=== PATIENT | male | born 1990 | race African-American/Black ===

== ENCOUNTER 2018-08-06 02:11 | Emergency (ER) | payer SELFPAY ==
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
[2018-08-06 02:22] VITALS: BP 113/59; PULSE 110; RESP 24; TEMP 36.4; O2SAT 95
--- NOTE | 2018-08-06 02:33 | DI.CT_ITS ---
SYMPTOMS/DIAGNOSIS: NECK PAIN WITH NEURO CHANGES NONCONTRAST HEAD CT: No intracranial hemorrhage or skull fracture is seen. There is mild patient motion. The ventricles are normal in size. The visualized portions of the orbits, sinuses and mastoid air cells appear clear. IMPRESSION: Negative head CT. CT OF THE CERVICAL SPINE: There is no evidence of fracture. The alignment appears normal. IMPRESSION: Negative CT of the cervical spine.
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
[2018-08-06] MEDS: Lactated Ringers 1,000 ML 150 ML IV (02:50)
[2018-08-06 02:53] LABS: Abs Immature Grans 0.03 k/cumm (0.0-0.09); Absolute Basophil Count 0.03 k/cumm (0.0-0.2); Absolute Monocyte Count 0.88 k/cumm (0.11-0.7); Basophils % 0.2; Eosinophils % 0.7; HCT 40.1 % (40.0-50.0); HGB 13.1 g/dL (13.5-17.5); Immature Grans % 0.2; Lymphocytes % 18.6; Mean Corp. HGB Concentration 32.7 g/dL (32.0-36.0); Mean Corpuscular Hemoglobin 23.6 pg (27.0-33.0); Mean Corpuscular Volume 72.3 fL (80-95); Monocytes % 6.3; Platelet Count 346 x1000/uL (130-400); RBC 5.55 m/cumm (4.50-6.00); White Blood Cell Count 13.95 k/cumm (4.4-10.8)
[2018-08-06 03:01] LABS: Absolute Lymphocyte Count 2.59 k/cumm (1.2-3.4); Absolute Neutrophil Count 10.32 k/cumm (1.2-6.7)
[2018-08-06 03:04] LABS: ALT 53 U/L (12-78); AST 25 U/L (15-37); Albumin 3.6 g/dL (3.4-5.0); Alkaline Phosphatase 106 U/L (46-116); Anion Gap 14.9 mmol/L (3-11); BUN 8 mg/dL (7-18); Bilirubin, Total 0.1 mg/dL (0.2-1.0); CO2 23.1 mmol/L (21.0-32.0); CREATININE 0.81 mg/dL (0.70-1.30); Calcium 8.5 mg/dL (8.5-10.1); Chloride 106 mmol/L (98-107); Glucose 106 mg/dL (70-100); Potassium 3.8 mmol/L (3.5-5.1); Sodium 144 mmol/L (136-145); Total Protein 7.8 g/dL (6.4-8.2)
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
--- NOTE | 2018-08-06 03:26 | NUR.NOTE ---
Nursing Note: pt states unable to urinate yet, refuses cath spec.
[2018-08-06 03:28] LABS: Microcytosis 2+; Poikilocytes 1+
[2018-08-06 03:30] LABS: Diff Comment RBC Morph Reviewed
--- NOTE | 2018-08-06 03:30 | NUR.NOTE ---
Nursing Note: pt refuses VS taking equipment. Refuses to wear ID bracelet. Has given other last name to Tribunat milly (Elicia), then changes back to Stephen for this nurse. Will continue to monitor.
--- NOTE | 2018-08-06 03:49 | DI.VRAD_ITS ---
EXAM: XR Chest, 1 View EXAM DATE/TIME: 08/06/2018 3:05 AM CLINICAL HISTORY: 28 years old, male; Pain; Chest pain TECHNIQUE: XR of the chest, 1 view. COMPARISON: No relevant prior studies available. FINDINGS: Lungs: Low lung volumes. No large infiltrates. Pleural space: Unremarkable. No pleural effusion. No pneumothorax. Heart/Mediastinum: Unremarkable. No cardiomegaly. Bones/joints: Unremarkable. IMPRESSION: No large infiltrates or effusions. Limited by portable technique and suboptimal inspiration. Dictated and Authenticated by: Devon Campos MD. Ordering:ASPEN OMALLEY MD
[2018-08-06 03:50] VITALS: PULSE 92; RESP 20; TEMP 36.4
--- NOTE | 2018-08-06 03:50 | DI.VRAD_ITS ---
EXAM: CT Head Without Intravenous Contrast EXAM DATE/TIME: 08/06/2018 2:40 AM CLINICAL HISTORY: 28 years old, male; Pain; Radicular pain (radiculopathy); Location of radicular pain not specified TECHNIQUE: Axial computed tomography images of the head/brain without intravenous contrast. Coronal and sagittal reformatted images were created and reviewed. COMPARISON: No relevant prior studies available. FINDINGS: Brain: Normal. No hemorrhage. No significant white matter disease. No edema. Ventricles: Normal. No ventriculomegaly. Bones/joints: Normal. No acute fracture. Sinuses: Normal as visualized. No acute sinusitis. Mastoid air cells: Normal as visualized. No mastoid effusion. Soft tissues: Normal. IMPRESSION: No acute focal intracranial lesions. EXAM: CT Cervical Spine Without Intravenous Contrast EXAM DATE/TIME: 08/06/2018 2:40 AM CLINICAL HISTORY: 28 years old, male; Pain; Radicular pain (radiculopathy); Location of radicular pain not specified TECHNIQUE: Axial computed tomography images of the cervical spine without intravenous contrast. Coronal and sagittal reformatted images were created and reviewed. COMPARISON: No relevant prior studies available. FINDINGS: Vertebrae: No acute fracture. Normal alignment. Discs/Spinal canal/Neural foramina: No spinal stenosis. No neural foraminal narrowing. Soft tissues: Unremarkable. Lungs: Lung apices are normal IMPRESSION: No acute fractures or subluxations. No significant degenerative changes. Dictated and Authenticated by: Devon Campos MD. Ordering:ASPEN OMALLEY MD
[2018-08-06 04:19] VITALS: BP 112/68; PULSE 88; TEMP 36.8; O2SAT 95
--- NOTE | 2018-08-06 04:23 | NUR.NOTE ---
Nursing Note: Pt refuses to have pants removed, refuses to have second IV placed, refuses to urinate and refuses to have bladder scan. Aware of transfer to [facility]. Completely uncooperative, remains oriented x 4. Will continue to monitor and update receiving facility.
[2018-08-06 04:32] VITALS: BP 112/68; PULSE 88; RESP 20; TEMP 36.8; O2SAT 95
== END 2018-08-06 04:45 | disposition short-term general hospital (02) ==
PROVIDERS: Emergency Provider Emergency Medicine
DX: M54.2 Cervicalgia (principal); M54.12 Radiculopathy, cervical region; Y04.0XXA Assault by unarmed brawl or fight, initial encounter; F10.129 Alcohol abuse with intoxication, unspecified; Y90.6 Blood alcohol level of 120-199 mg/100 ml
CPT/HCPCS: 80053; 96360; 96361; 99285; 70450; 71045; 72125; 80320; 85025

== ENCOUNTER 2022-08-21 10:19 | Outpatient (REF) | payer SELFPAY ==
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
[2022-08-23 15:21] LABS: Chlamydia Result Negative (Negative); GC Result Negative (Negative)
[2022-08-24 09:21] LABS: HIV-1/2 Ag & Ab Screen Negative (Negative)
[2022-08-24 09:36] LABS: Hepatitis C Ab w Rflx HCV PCR Negative (Negative)
[2022-08-24 12:11] LABS: Syphilis Serology (RPR) Negative (Negative)
== END 2022-08-21 10:20 | disposition home or self-care (01) ==
LOC: LBN 10:19
PROVIDERS: Visit Provider Nurse Practitioner Family
DX: Z11.3 Encounter for screening for infections with a predominantly sexual mode of transmission (principal)
CPT/HCPCS: 86803; 87389; 87491; 87591; 86592

== ENCOUNTER 2022-09-17 10:39 | Emergency (ER) | payer SELFPAY ==
[2022-09-17] VITALS (42 sets, daily range): BP systolic 100–149; BP diastolic 52–102; PULSE 109–126; RESP 18–30; TEMP 37.9–38.3; O2SAT 88–99
--- NOTE | 2022-09-17 10:45 | DI.RAD_ITS ---
Exam(s) XR PORTABLE CHEST AP EXAM: XR PORTABLE CHEST AP CLINICAL HISTORY: cough, sputum production. TECHNIQUE: 2D digital imaging was performed. COMPARISON: CR XR CHEST 1V IN DI DEPT from 08/06/2018 FINDINGS: LUNGS: Clear. No pleural abnormality seen. HEART: Normal. MEDIASTINUM: Normal. OTHER FINDINGS: None. IMPRESSION: No acute pulmonary findings. DATA REPOSITORY: RADIATION DOSE DELIVERED: Total DLP
--- NOTE | 2022-09-17 11:06 | ED.GENADUL_ITS ---
Discharge Plan Disposition Patient Disposition: Home Condition: Improving Discharge Details Clinical Impression: Pneumonia, Influenza A Primary Care Provider: Isabela,Local ED Provider: Edwin Harden Home Meds and New Rx's Prescriptions: New cefdinir 300 mg capsule 300 mg PO Q12H 10 Days Qty: 20 0RF Discharge Instructions Instructions: Influenza (ED), Pneumonia (ED) Additional Instructions: Home to rest today. Small, frequent sips of fluids to maintain hydration. Your work-up included CAT scan and laboratory testing. You have a walking pneumonia as well as influenza. Please take antibiotics as prescribed. Tylenol and/or ibuprofen as needed for aches, pains or fever. May use albuterol inhaler as needed 1 to 2 puffs every 4 hours for cough or wheezing. Return to the emergency department for any acute concerns. Our care management team will arrange a follow-up for you in primary care clinic to establish local primary care and for recheck. Stand Alone Forms: Work Release Medical Decision Making 32-year-old male presents from workplace. He states he has had 5 months of cough with production of sputum. Now with days of fever, chills, and development of hemoptysis last night with complaint of pain in his left chest. He arrives to the ER febrile with a temp of 38 3, pulse was 123, he is oxygenating normally on room air 96%. Differential gnosis is broad including pneumonia, pneumonitis, viral syndrome, must consider cavitary lesion given persistence of symptoms. Patient IV access established, given 2 L normal saline, antipyretic, labs obtained and he is referred for chest x-ray. Chest x-ray is unremarkable. Laboratories will note slight left shift present but white count of 10. Chemistries are unremarkable, note of AST 37, ALT 68. Positive for influenza A. Given the patient's hemoptysis, unremarkable chest x-ray, he was referred for CT imaging. This reveals bilateral patchy pneumonia. No evidence of PE. Patient was also given inhaled DuoNeb updraft with some improvement in diminishing his cough. Patient given ceftriaxone. He will be continued on oral cephalosporin in the o utpatient setting. He is counseled as to the possibility of dual diagnosis of flu a and walking, community-acquired pneumonia. Sign Out No HPI General Mode of arrival: ambulatory . Date/Time Provider Initiated Documentation: 09/17/22 10:48 . Limitations to Documentation: no limitations . Information obtained by: patient . History of Present Illness 32 year old M presents to the emergency department with the chief complaint of Fever and cough with hemoptysis, described as moderate, and is localized to the chest and left. Patient reports no radiation. Patient started experiencing this hour(s) and it has been intermittent. No relieving factors improve symptom(s), No exacerbating factors reported . Patient notes cough and fever/chills; denies rash and shortness of breath. Patient did receive the following treatments prior to arrival, none Related Data Home Medications Medication Instructions Recorded Confirmed cefdinir 300 mg capsule 300 mg PO Q12H 10 days #20 caps 09/17/22 Previous Rx's Medication Instructions Recorded cefdinir 300 mg capsule 300 mg PO Q12H 10 days #20 caps 09/17/22 Allergies Allergy/AdvReac Type Severity Reaction Status Date / Time shrimp Allergy Verified 09/17/22 10:49 General Stated Complaint: GenMedical SUJATHA: 3 Review of Systems Narrative: See HPI. 8 systems reviewed and otherwise negative PFSH All Active Problems (Updated 09/17/22 @ 14:20 by Edwin Harden MD) Pneumonia (Acute) Influenza A (Acute) Medical History Asthma SLE (systemic lupus erythematosus) Social History Smoking/Tobacco Use Status: Current every day Tobacco Type: cigarettes Smoking risk assessment performed?: Yes Alcohol Intake: current Alcohol Intake frequency: holidays/special occasions only Drug use: Never Substance use type: does not use Do you feel safe in your relationship?: Yes Exam Narrative Exam Narrative: GEN: awake, alert, oriented 3. Pleasant, well groomed, interactive. HEAD: Normocephalic, atraumatic ENT: Mucous membranes moist, oropharynx unremarkable, External ear exam unremarkable EYES: PERRL, EOMI NECK: Full ROM, no VISH, no menigismus CHEST/RESP: Nontender, basilar rhonchi and end expiratory wheeze noted CARDIOVASCULAR: Regular and tachycardic, no murmur, rub kofi. 2+ Rad pulse bilateral ABDOMEN: Soft, nontender, no mass. +Bowel sounds EXT: Full ROM, no edema, no rash Neuro: Grossly normal neurologic exam, conversant, interactive. Psych: Speech fluent, thoughts congruent, affect normal Course Vital Signs Vital signs: Vital Signs Temperature 38.3 C H 09/17/22 10:45 Pulse 123 H 09/17/22 10:45 Respiratory Rate 18 09/17/22 10:45 Blood Pressure 149/96 H 09/17/22 10:45 Pulse Oximetry 96 09/17/22 10:45 Temperature 38.3 C H 09/17/22 10:45 Pulse 123 H 09/17/22 10:45 Respiratory Rate 18 09/17/22 10:50 Respiratory Effort Non-Labored 09/17/22 10:50 Respiratory Depth Normal 09/17/22 10:50 Respiratory Pattern Normal 09/17/22 10:50 Blood Pressure 149/96 H 09/17/22 10:45 Blood Pressure Position Sitting 09/17/22 10:45 Pulse Oximetry 96 09/17/22 10:45 Oxygen Delivery Method Room Air 09/17/22 10:45 Oxygen Flow Rate 0 09/17/22 10:45 PAWSS Have you Been Recently Intoxicated or Drunk Within the Last 30 days?: No Have you Ever Experienced Previous Episodes of Alcohol Withdrawal?: No Have you ever Experienced Withdrawal Seizures?: No Have you ever Experienced Delirium Tremens(DT)s?: No Have you ever undergone Alcohol Rehabilitation Treatment (i.e, inpt ot outpatient treatment programs)?: No Have you ever Experienced Blackouts?: No Have you ever Combined Alcohol with other Downers within the last 90 days?: No Have you ever Combined Alcohol with any other Substance of Abuse during the last 90 days?: No Positive Blood Alcohol level on Presentation? [PCS.BAL]: No Evidence of Increased Autonomic Activity (i.e. HR>120, tremor, sweating, agita tion, nausea)?: No Result: 0
[2022-09-17 11:46] LABS: Lactate 1.8 mmol/L (0.6-1.4)
[2022-09-17 11:48] LABS: Abs Immature Grans 0.04 10^3/uL (0.0-0.06); Absolute Basophil Count 0.04 10^3/uL (0.0-0.2); Absolute Eosinophil Count 0.02 10^3/uL (0.0-0.7); Absolute Lymphocyte Count 0.68 10^3/uL (1.2-3.4); Absolute Monocyte Count 0.62 10^3/uL (0.1-0.8); Absolute Neutrophil Count 8.71 10^3/uL (1.2-6.7); Basophils % 0.4; Eosinophils % 0.2; HCT 44.4 % (40.0-50.0); HGB 13.6 g/dL (13.5-17.5); Immature Grans % 0.4; Lymphocytes % 6.7; MCH 22.7 pg (27.0-33.0); MCHC 30.6 % (32.0-36.0); MCV 74 fL (80-95); MPV 9.6 fL (8.0-11.0); Monocytes % 6.1; Neutrophils % 86.2; Platelet Count 274 10^3/uL (130-400); RBC 5.99 10^6/uL (4.36-5.78); RDW-SD 39.7 fL; WBC 10.11 10^3/uL (4.4-10.8)
[2022-09-17 11:54] LABS: Diff Comment RBC Morph Reviewed; Microcytosis 2+
[2022-09-17] MEDS: ACETAMINOPHEN 1,000 MG/100 ML BTL 400 MG IVPB (11:55)
[2022-09-17] MEDS: Normal Saline 1,000 ML 1000 ML IV (11:56)
[2022-09-17 12:04] LABS: INR 1.1 (0.9-1.1); PTT Activated 29.2 sec (21.0-27.5); Prothrombin Time 10.8 sec (9.3-11.0)
[2022-09-17 12:11] LABS: ALT 68 U/L (16-63); AST 37 U/L (15-37); Alkaline Phosphatase 95 U/L (46-116); BUN 10 mg/dL (7-18); Bilirubin, Total 0.3 mg/dL (0.2-1.0); CREATININE 1.1 mg/dL (0.70-1.30); Calcium 8.8 mg/dL (8.5-10.1); Chloride 100 mmol/L (98-107); Estimated GFR 92.61 (mL/min/1.73m2); Glucose 100 mg/dL (74-106); Magnesium 1.7 mg/dL (1.8-2.4); Potassium 3.9 mmol/L (3.5-5.1); Sodium 136 mmol/L (136-145); Total Protein 8.5 g/dL (6.4-8.2)
[2022-09-17 13:10] LABS: COVID-19 PCR Negative (Negative); Influenza B PCR Negative (Negative); RSV PCR Negative (Negative)
[2022-09-17 13:19] LABS: Influenza A PCR Positive (Negative)
[2022-09-17] MEDS: Normal Saline - Diluent 50 ML VIAL IV (13:19)
[2022-09-17] MEDS: Omnipaque 350 MG/ML 100 ML BTL 83 ML IJ (13:21)
--- NOTE | 2022-09-17 13:30 | DI.CT_ITS ---
Exam(s) CT CHEST PE CTA EXAM: CT CHEST PE CTA CLINICAL HISTORY: hemoptysis, cough. TECHNIQUE: Imaging Protocol: Axial CT angiography was performed with multi-slice acquisition and mu lti-planar and/or 3D reconstructions. CONTRAST MATERIAL: Intravenous: Omnipaque 350 Contrast volume:structured data in ml COMPARISON: CR XR PORTABLE CHEST AP from 09/17/2022 FINDINGS: CT angiography of the chest was performed with intravenous infusion of 83 cc of Omnipaque 350. There are multiple ground-glass and consolidative opacities in both lungs, predominantly in left uppe r lobe period there appear to be some reactive hilar and mediastinal nodes bilaterally. Findings are consistent with infectious process period. No pleural effusion. Tracheobronchial tree appears intac t. No evidence of pulmonary embolic disease. Thoracic aorta is of normal diameter, no thoracic aortic an eurysm or dissection, major branch vessels appear intact. Images obtained through the upper abdomen show unremarkable appearance of the visualized portions of the liver, spleen, pancreas, adrenals, and kidneys. IMPRESSION: The appearance is consistent with patchy pneumonia as described above predominantly involving left up per lobe. No evidence of pulmonary embolic disease. RADIATION DOSE DELIVERED: 490.19mGy.cm Total DLP 490.19mGy.cm Total DLP DATA REPOSITORY: All CT scans at this facility are submitted to the National Radiology Data Registry (NRDR) Dose Index Registry (DIR) with the [employer] ([employer]). RADIATION OPTIMIZATION: All CT scans at this facility use at least one of these dose optimization te chniques: automated exposure control; mA and/or kV adjustment per patient size (includes targeted exa ms where dose is matched to clinical indication); or iterative reconstruction.
[2022-09-17] MEDS: cefTRIAXone 1 GM/50 ML BAG IVPB (14:19)
--- NOTE | 2022-09-17 15:56 | NUR.NOTE ---
Nursing Note: Referral given to Care Management pt needs PCP; pneumonia; 1 to 2 week.
== END 2022-09-17 16:21 | disposition home or self-care (01) ==
PROVIDERS: Emergency Provider Emergency Medicine
DX: J10.00 Influenza due to other identified influenza virus with unspecified type of pneumonia (principal); Z20.822 Contact with and (suspected) exposure to COVID-19
CPT/HCPCS: 71275; 80053; 87637; 96361; 96365; 96375; 99285; 71045; 83605; 83735; 85025; 85610; 85730; 99284; J0131; J0696; J3490

== ENCOUNTER 2023-12-27 13:36 | Emergency (ER) | payer SELFPAY ==
[2023-12-27 13:42] VITALS: BP 127/78; PULSE 115; RESP 18; TEMP 36.2; O2SAT 96
--- NOTE | 2023-12-27 14:32 | W.ED.GENAD ---
Discharge Plan Disposition Patient Disposition: Home Discharge Details Clinical Impression: URI (upper respiratory infection) Primary Care Provider: Unknown,Unknown ED Provider: Jensen Finley Home Meds and New Rx's Prescriptions: New benzonatate 200 mg capsule 200 mg PO TID PRN (Reason: cough) Qty: 30 0RF albuterol sulfate [ProAir HFA] 90 mcg/actuation HFA aerosol inhaler 1 - 2 puff inhalation .Q4-6H PRN (Reason: shortness of breath or wheezing) Qty: 6.7 0RF Continued acetaminophen [Tylenol Extra Strength] 500 mg tablet 500 - 1,000 mg PO Q6H PRN Rx Instructions: !1-2 tablets Q6H PRN - NTE 3000 mg, NTE 3000 mg/24 hr period calcium carbonate 500 mg calcium (1,250 mg) tablet,chewable 500 mg PO QID PRN Rx Instructions: NTE 8 tablets/24 hr period melatonin 3 mg capsule 3 - 6 mg PO HS PRN (Reason: insomnia) Rx Instructions: 1-2 tabs QHS PRN; may repeat 1x after 1 hr (Maximum total dose 12 mg) blossom root extract 50 mg tablet 250 mg PO Q4H PRN (Reason: nausea) diphenhydramine HCl [Benadryl] 25 mg capsule 25 mg PO QHS PRN (Reason: insomnia) Rx Instructions: May repeat 1x after 1 hour (Maximum total dose 50 mg) hydroxyzine HCl 25 mg tablet 25 mg PO Q8H PRN Qty: 90 0RF Rx Instructions: 14 days ibuprofen 800 mg tablet 800 mg PO Q8H PRN (Reason: pain) Qty: 180 3RF Discharge Instructions Instructions: Upper Respiratory Infection (ED) Additional Instructions: Continue to take [id number] Mucinex, stay well-hydrated, and get plenty of rest. At this time I do believe this is a viral illness and you may have symptoms for the next week or so. If not improving please follow-up with your primary care provider. If you have any new or significant worsening of symptoms please return to the emergency department for reassessment. Referrals: Primary Care Provider [Outside] - 1 week (If not improving) Discharge Data Discharge Date/Time-TO BE ENTERED AT DEPARTURE: 12/27/23 14:39 HPI General Mode of arrival: ambulatory. Date/Time Provider Initiated Documentation: 12/27/23 14:25. Limitations to Documentation: no limitations. Information obtained by: patient, family and RN notes reviewed. History of Present Illness 33 year old M presents to the emergency department with the chief complaint of Nasal congestion, cough, sore throat, described as moderate, Patient started experiencing this day(s) (3) No relieving factors improve symptom(s), Patient did receive the following treatments prior to arrival, other (Multiple [id number]) Related Data Home Medications Medication Instructions Recorded Confirmed acetaminophen 500 mg tablet 500 - 1,000 mg PO Q6H PRN 11/24/22 12/27/23 (Tylenol Extra Strength) calcium carbonate 500 mg calcium 500 mg PO QID PRN 11/24/22 12/27/23 (1,250 mg) chewable tablet diphenhydramine HCl 25 mg capsule 25 mg PO QHS PRN insomnia 11/24/22 12/27/23 (Benadryl) blossom root extract 50 mg tablet 250 mg PO Q4H PRN nausea 11/24/22 12/27/23 hydroxyzine HCl 25 mg tablet 25 mg PO Q8H PRN anxiety #90 tabs 11/24/22 12/27/23 ibuprofen 800 mg tablet 800 mg PO Q8H PRN pain #180 tabs 11/24/22 12/27/23 melatonin 3 mg capsule 3 - 6 mg PO HS PRN insomnia 11/24/22 12/27/23 albuterol sulfate 90 mcg/actuation 1 - 2 puff inhalation .Q4-6H PRN 12/27/23 aerosol inhaler (ProAir HFA) shortness of breath or wheezing #6.7 grams benzonatate 200 mg capsule 200 mg PO TID PRN cough #30 caps 12/27/23 Previous Rx's Medication Instructions Recorded hydroxyzine HCl 25 mg tablet 25 mg PO Q8H PRN anxiety #90 tabs 11/24/22 ibuprofen 800 mg tablet 800 mg PO Q8H PRN pain #180 tabs 11/24/22 albuterol sulfate 90 mcg/actuation 1 - 2 puff inhalation .Q4-6H PRN 12/27/23 aerosol inhaler (ProAir HFA) shortness of breath or wheezing #6.7 grams benzonatate 200 mg capsule 200 mg PO TID PRN cough #30 caps 12/27/23 Allergies Allergy/AdvReac Type Severity Reaction Status Date / Time shellfish derived Allergy Severe Anaphylaxis Verified 12/27/23 13:44 shrimp Allergy Anaphylaxis Verified 12/27/23 13:44 General Stated Complaint: RespSymp SUJATHA: 4 Review of Systems Constitutional Constitutional: Reports body ache(s), Reports chills, Reports fever(s), Reports headache(s) and Reports malaise Eyes Eyes: Denies eye discharge ENT Ears, Nose, Mouth, and Throat: Reports as per HPI, Denies ear discharge, Denies otalgia, Reports headache(s), Reports nasal congestion, Reports nasal discharge, Denies neck pain, Reports sinus pressure, Reports sore throat and Denies throat swelling Cardiovascular Cardiovascular: Denies chest pain and Denies dyspnea Respiratory Respiratory: Reports cough and Denies dyspnea Musculoskeletal Musculoskeletal: Denies joint swelling and Denies neck pain Integumentary/Breasts Skin/Breast: Denies rash Neurologic Neurologic: Reports headache(s) Allergic/Immunologic Allergic/Immunologic: Denies throat swelling Exam Const General: cooperative, comfortable and no acute distress Orientation: alert and awake [facility] Head: normal to inspection, normocephalic and atraumatic Ears: hearing grossly normal bilaterally and TM's normal bilaterally General nose exam: external nose normal Face and sinus: no erythema Mouth: oral mucosae normal, no drooling, no muffled voice and no trismus Throat: abnormal tonsil bilaterally erythema and posterior oropharynx abnormal erythema Neck Neck: normal visual inspection, full ROM, no lymphadenopathy, no meningeal signs, trachea midline and supple Resp Effort & Inspection: normal respiratory effort, able to speak in complete sentences and cough Quality of cough: dry Auscultation: clear to auscultation bilaterally Cardio Rate: tachycardic Rhythm: regular rhythm Heart Sounds: S1 normal, S2 normal, normal S1 and S2, no click, no gallops, no murmurs and no rubs Skin General skin exam: no rashes or lesions noted and dry skin (warm) Neuro General: patient alert, patient awake, patient oriented x3, gait normal and moves all extremities Cognition: normal cognition Speech: speech normal Course Vital Signs Vital signs: Vital Signs Temperature 36.2 C L 12/27/23 13:42 Pulse 115 H 12/27/23 13:42 Respiratory Rate 18 12/27/23 13:42 Blood Pressure 127/78 12/27/23 13:42 Pulse Oximetry 96 12/27/23 13:42 Temperature 36.2 C L 12/27/23 13:42 Temperature Source Skin 12/27/23 13:42 Pulse 115 H 12/27/23 13:42 Respiratory Rate 18 12/27/23 13:42 Respiratory Effort Normal, Non-Labored 12/27/23 13:45 Blood Pressure 127/78 12/27/23 13:42 Blood Pressure Position Sitting 12/27/23 13:42 Pulse Oximetry 96 12/27/23 13:42 Oxygen Delivery Method Room Air 12/27/23 13:42 Oxygen Flow Rate 0 12/27/23 13:42 Pain Level 5 12/27/23 13:42 Lab/Test Results Lab/Test Results: 12/27/23 13:49 Pharynx Group A Streptococcus Culture - Pending POC Strep Test-JOSHUA(Rapid) Start: 12/27/23 14:10 Freq: .Rapid Strep Test Status: Active Protocol: Document 12/27/23 14:10 PS (Rec: 12/27/23 14:10 PS [id number]) Strep test-JOSHUA(Rapid)-POC POC-Strep test-JOSHUA (Rapid) Negative POC-Strep test-JOSHUA (Rapid) Negative Medical Decision Making Patient presenting to the clinic for chief complaint of cold symptoms. Patient reports symptoms have been going on for the past 3 days. reports headache, sinus pressure, nasal congestion, and sore throat. Physical exam shows mild posterior pharynx and tonsillar erythema, no lymphadenopathy, otherwise clear lung sounds and otherwise unremarkable exam. Patient has no signs of meningitis, peritonsillar abscess, retropharyngeal abscess, Chito's angina, or life-threatening Airway infection. Patient prescribed Tessalon Perles and inhaler otherwise conservative management discussed along with follow-up and return precautions. After discussion of diagnosis and plan of care patient has no further needs, questions, or concerns and states clear understanding to return to the emergency department for any worsening symptoms. This documentation was generated using Transparentreesation system, please disregard any oddities of phrase or misspellings. Quality:SDOH Health Related Social Needs: No Data to Display PFSH All Active Problems URI (upper respiratory infection) (Acute) Opiate dependence (Acute) Glaucoma (Chronic) Personal history of nicotine dependence (Acute) Lupus (Acute) PTSD (post-traumatic stress disorder) (Acute) Medical History Asthma SLE (systemic lupus erythematosus) Social History Smoking/Tobacco Use Status: Current every day Tobacco Type: cigarettes Smoking risk assessment performed?: Yes Alcohol Intake: current Alcohol Intake frequency: holidays/special occasions only Drug use: Never Substance use type: does not use Do you feel safe in your relationship?: Yes
== END 2023-12-27 14:39 | disposition home or self-care (01) ==
PROVIDERS: Emergency Provider Nurse Practitioner Family
DX: J06.9 Acute upper respiratory infection, unspecified (principal); R05.1 Acute cough; R07.0 Pain in throat
CPT/HCPCS: 87880; 99283; 87081